=== PATIENT | female | born 1960 | race Caucasian/White ===

== ENCOUNTER 2016-11-09 13:29 | Emergency (ER) | payer MEDICARE, MEDICAID ==
[~2016-11-09] VITALS: Ht 162.6 cm; Wt 75.9 kg
[~2016-11-09 13:29] MED LIST: ACET1TAB12 PO; CEPH500C PO; DIG125 PO; LOSA25TA21 PO; METO-271 PO; SPIR25TA PO; TORS10TA5 PO
[2016-11-09 13:33] VITALS: BP 131/83; PULSE 75; RESP 15; O2SAT 97
--- NOTE | 2016-11-09 16:06 | ED.REPORT ---
HPI-NVD Date of Service November 09, 2016 ED Provider: Suzanne Glass History of Present Illness: concerned about fluid in lungs, coughing for a week. better today, last night wheezing. no hx of asthma. chf with a pacer, last echo was 08/14/2016 function improved to 51% Nursing Notes Stated Complaint: BEEN SICK FOR 1 WEEK Chief Complaint: General Complaint Nursing Notes Reviewed: Yes Allergies: Coded Allergies: lisinopril (Verified Allergy, Severe, Rash, swelling, 11/09/16) hydrocodone bitartrate (Verified Adverse Reaction, Severe, nausea, feel sick, 11/09/16) meperidine HCl (Verified Adverse Reaction, Severe, nausea, feeling sick, ) Scheduled Acetaminophen/Codeine 300-30mg (Tylenol/Codeine #3) 1 Each Tablet 1 EACH PO Q4- 6H Cephalexin (Cephalexin) 500 Mg Capsule 500 MG PO TID Digoxin-Expunged Drug, Do Not Renew! (Digoxin-Expunged Drug, Do Not Renew!) 0.125 Mg Tablet 0.125 MG PO DAILY Losartan Potassium (Losartan Potassium) 25 Mg Tablet 25 MG PO DAILY Metoprolol Succinate Inactive Drug Do Not Use (Metoprolol Succinate Inactive Drug Do Not Use) 25 Mg Tab.er.24h 50 MG PO BID 1/2 TAB 25MG = 12.5MG Spironolactone (Aldactone) 25 Mg Tablet 25 MG PO DAILY Torsemide (Torsemide) 10 Mg Tablet 10 MG PO DAILY Scheduled PRN Acetaminophen/Codeine 300-30mg (Tylenol/Codeine #3) 1 Each Tablet 1 EACH PO Q4- 6H PRN PRN For Pain General Time Seen by MD: 16:05 Chief Complaint Other (cough) Hx Obtained From: Patient Onset Occurred: 5 days ago Past Medical History Past Medical History Reports: Congestive heart failure, Denies: Asthma, Diabetes mellitus Past Surgical History pacer placed, jze gautam Smoking History Never Smoker Social History 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) Drug Use: Denies drug use Occupation lives with boyfriend, no work or school 11/09/2016 Review of Systems Basic Review of Systems Eyes: Vision NL, No discharge Hematologic: No bleeding, No bruising Psychiatric: Normal thought content Physical Exam Initial Vital Signs Vital Signs (First) Date Time Temp Pulse Resp B/P Pulse Ox O2 Delivery O2 Flow Rate FiO2 11/09/16 13:33 36.0 75 15 131/83 97 Room Air Initial VS: Reviewed, Vital signs normal Head / Eyes: Atraumatic, Normocephalic, PERRL ENT: Mucous membranes moist, Conjunctiva normal, No scleral icterus Neck: Supple, Non-tender, Full range of motion Respiratory: Breath sounds normal, Clear to auscultation, No respiratory distress Cardiovascular: Regular rate & rhythm, Heart sounds normal, Intact distal pulses Back: No CVA tenderness Lymphatic: No lymphadenopathy Extremities: Vascular intact, Neuro intact, No swelling, No tenderness Skin: Warm, Dry, No cyanosis Neurologic: Alert, Oriented, Nonfocal Psychiatric: Mood/affect normal, Behavior normal, Normal thought content General/Constitutional: Awake, Alert, No acute distress, Well appearing, Well developed, Well hydrated Abdomen: Atraumatic, Soft, Non-tender Respiratory / Chest: Atraumatic, Breath sounds NL, Breath sounds = bilat Cardiovascular: Heart rate NL, Regular rhythm, Heart sounds NL, No gallop Interpretation & Diagnostics Interpretation & Diagnostics: EKG is normal; Lab Results Interpretation Result Diagram: 11/09/16 1646 11/09/16 1646 Test 11/09/16 16:46 White Blood Count 5.5th/mm3 (3.8-10.1) Red Blood Count 4.35mil/mm3 (3.90-5.20) Hemoglobin 13.7g/dL (12.0-15.6) Hematocrit 40.1% (35.0-46.0) Mean Corpuscular Volume 92.2fL (81-100) Mean Corpuscular Hemoglobin 31.5pg (27.0-35.0) Mean Corpuscular Hemoglobin Concent 34.2% (32.0-37.0) Red Cell Distribution Width 12.6% (12.3-15.4) Platelet Count 178bil/L (150-400) Neutrophils (%) (Auto) 45.5% (40-74) Lymphocytes (%) (Auto) 45.6% (14-46) Monocytes (%) (Auto) 7.3% (4-12) Eosinophils (%) (Auto) 0.5% (0-5) Basophils (%) (Auto) 1.1% (0-3) Sodium Level 138mEq/L (134-144) Potassium Level 4.1mEq/L (3.5-5.2) Chloride Level 99mEq/L (97-108) Carbon Dioxide Level 23mmol/L (18-29) Blood Urea Nitrogen 19mg/dL (6-24) Creatinine 0.66mg/dL (0.57-1.00) Estimat Glomerular Filtration Rate 132mL/min (>59) Glucose Level 123mg/dL (60-99) Calcium Level 10.2mg/dL (8.5-10.1) Total Bilirubin 0.5mg/dL (0.0-1.2) Aspartate Amino Transf (AST/SGOT) 24U/L (0-50) Alanine Aminotransferase (ALT/SGPT) 25U/L (0-32) Alkaline Phosphatase 74U/L (25-150) Troponin T < 0.010ug/L (0.0-0.011) Pro-B-Type Natriuretic Peptide 62.49pg/mL (0-287) Total Protein 8.0g/dL (6.4-8.4) Albumin 4.3g/dL (3.4-5.0) Hold Lomas Top Tube Received (Received) Lab Results Interpretation: Trop and BNP are normal X-Ray Chest Interpretation Chest Xray Interpretation: ROCEDURE: X-RAY CHEST, TWO VIEWS ([id number]) INDICATIONS: cough TECHNIQUE: 2 views of the chest were acquired. COMPARISON: [facility], , CHEST 2VW, 06/02/2014, 13:56. FINDINGS: Surgical changes and devices: Left-sided pacer. Lungs and pleura: No pleural effusions or pneumothorax. Lungs are clear. Mediastinum: Mediastinal contours are normal. Heart size is normal. Bones and chest wall: No suspicious bony abnormalities. Soft tissues appear unremarkable. IMPRESSION: No acute process. Dictated by: Shantel Acosta M.D. on 11/09/2016 at 17:12 Approved by: Shantel Acosta M.D. on 11/09/2016 at 17:12 Re-Eval/Medical Decision Med Decision/Clinical Course 56 year old female presents to make sure she has no "fluid" on her lungs. Patient with HX of chf. Patient emotional as her mother 1 year ago 11/2015. No sign of chf excerbation, lungs are clear. Discharge & Departure Impression: Primary Impression: Cough Disposition: Home Discharge Condition Condition: Improved Additional Instructions: Your chest x-ray is normal. There is no sign of infection. The EKG is normal. The labs are normal. Your troponin is normal, no sign of cardiac event. The BNP is normal, no sign of heart being stretched. No indication at this time for any antibiotics. Please keep all appointments with cardiology as scheduled. REturn with any concerns. EDSupervising Provider for APC: Reyes Shook MD, Sue ARNP November 09, 2016 16:06
[2016-11-09 16:55] LABS: BASOPHILS % (AUTO) 1.1 % (0-3); EOSINOPHILS % (AUTO) 0.5 % (0-5); MONOCYTES % (AUTO) 7.3 % (4-12); Mean Corpuscular Hemoglobin 31.5 pg (27.0-35.0); Mean Corpuscular Volume 92.2 fL (81-100); NEUTROPHILS % (AUTO) 45.5 % (40-74); Platelet Count 178 bil/L (150-400)
--- NOTE | 2016-11-09 17:14 | DRSVH ---
PROCEDURE: X-RAY CHEST, TWO VIEWS ([id number]) INDICATIONS: cough TECHNIQUE: 2 views of the chest were acquired. COMPARISON: [facility], , CHEST 2VW, 06/02/2014, 13:56. FINDINGS: Surgical changes and devices: Left-sided pacer. Lungs and pleura: No pleural effusions or pneumothorax. Lungs are clear. Mediastinum: Mediastinal contours are normal. Heart size is normal. Bones and chest wall: No suspicious bony abnormalities. Soft tissues appear unremarkable. IMPRESSION: No acute process. Dictated by: Shantel Acosta M.D. on 11/09/2016 at 17:12 Approved by: Shantel Acosta M.D. on 11/09/2016 at 17:12
[2016-11-09 17:28] LABS: TROPONIN T < 0.010 ug/L (0.0-0.011)
[2016-11-09 17:55] VITALS: BP 137/89; PULSE 71; RESP 15; O2SAT 100
== END 2016-11-09 17:40 | disposition home or self-care (01) ==
LOC: SED 13:29
DX: R05 Cough (principal); I50.9 Heart failure, unspecified; Z88.5 Allergy status to narcotic agent; Z88.8 Allergy status to other drugs, medicaments and biological substances